=== PATIENT | female | born 1950 | race Two or more races ===

== ENCOUNTER 2017-05-05 18:42 | Emergency (ER) | payer MEDICARE, MEDICAID ==
[~2017-05-05] VITALS: Ht 160 cm; Wt 78.5 kg
[2017-05-05 19:36] LABS: Basophils # (auto) 0 uL; Basophils % (auto) 0.7 % (0.0-2.0); Eosinophils # (auto) 0.1 uL; Eosinophils % (auto) 1.7 % (0.0-7.0); Hematocrit 42.1 % (36.0-46.0); Hemoglobin 14.1 g/dL (12.2-16.2); Lymphocytes # (auto) 1.8 uL; Lymphocytes % (auto) 24.7 % (10.0-50.0); Mean Corpuscular Hemoglobin 30.4 pg (28.0-32.0); Mean Corpuscular Hgb Conc. 33.5 g/dL (32.0-36.0); Mean Corpuscular Volume 90.7 fL (80.0-100.0); Monocytes # (auto) 0.7 uL; Monocytes % (auto) 9.5 % (0.0-12.0); Neutrophils # (auto) 4.5 uL; Neutrophils % (auto) 63.4 % (37.0-80.0); Nucleated Red Blood Cells % 0.1 %; Platelet Count (auto) 323 10^3/uL (140-450); Red Blood Cells 4.64 10^6/uL (4.0-5.20); Red Cell Distribution Width 12.8 % (11.8-14.3); White Blood Cell 7.2 10^3/uL (4.4-10.8)
[2017-05-05 19:55] LABS: Albumin 4.1 g/dL (3.4-5.0); BUN/Creatinine Ratio 14.1; Bilirubin, Total 0.6 mg/dL (0.2-1.0); Total Protein 7.8 g/dL (6.4-8.2)
[2017-05-05 23:48] LABS: Urine Bacteria NONE SEEN /hpf (None Seen); Urine Blood Negative /uL (Negative); Urine Hyaline Cast MOD /lpf (0 - 2); Urine Mucus FEW (None Seen); Urine Specific Gravity 1.015 (1.001-1.035); Urine WBC 2 /hpf (0 - 5)
[2017-05-06 07:30] VITALS: BP 141/86
[2017-05-22] MEDS ORDERED: NAP500T PO (10:54)
[2017-05-22] MEDS ORDERED: ETOD400T PO (10:54)
[2017-05-22] MEDS ORDERED: MAGN100T6 OR (10:54)
[2017-05-22] MEDS ORDERED: GLUC1CAP12 PO (10:54)
[2017-05-22] MEDS ORDERED: CYAN100T7 PO (10:54)
[2017-05-22] MEDS ORDERED: OMEG1400 PO (10:54)
== END 2017-05-06 08:21 | disposition home or self-care (01) ==
LOC: ER 18:42
DX: E11.65 Type 2 diabetes mellitus with hyperglycemia (principal); M19.90 Unspecified osteoarthritis, unspecified site; E78.5 Hyperlipidemia, unspecified
CPT/HCPCS: 36415; 80053; 81001; 82962; 83036; 85025

== ENCOUNTER → 2017-05-27 | Outpatient (CLI) | payer MEDICARE, MEDICAID ==
[~2017-05-27] MED LIST: CYAN100T7 PO; ETOD400T PO; GLUC1CAP12 PO; MAGN100T6 OR; NAP500T PO; OMEG1400 PO
[2017-05-27 12:27] LABS: Basophils # (auto) 0 uL; Basophils % (auto) 0.6 % (0.0-2.0); Eosinophils # (auto) 0.1 uL; Eosinophils % (auto) 1.8 % (0.0-7.0); Hematocrit 45.4 % (36.0-46.0); Lymphocytes # (auto) 1.2 uL; Lymphocytes % (auto) 18.9 % (10.0-50.0); Mean Corpuscular Volume 90.7 fL (80.0-100.0); Monocytes # (auto) 0.5 uL; Monocytes % (auto) 7.3 % (0.0-12.0); Neutrophils # (auto) 4.4 uL; Neutrophils % (auto) 71.4 % (37.0-80.0); Nucleated Red Blood Cells % 0.1 %; Platelet Count (auto) 372 10^3/uL (140-450); Red Cell Distribution Width 13.2 % (11.8-14.3); Urine Blood TRACE /uL (Negative); Urine Specific Gravity 1.013 (1.001-1.035); White Blood Cell 6.2 10^3/uL (4.4-10.8)
[2017-05-27 12:49] LABS: Free T4 (Free Thyroxine) 1.57 ng/dL (0.89-1.76)
[2017-05-27 13:05] LABS: BUN/Creatinine Ratio 15.6; Bilirubin, Total 0.5 mg/dL (0.2-1.0); Calcium 8.7 mg/dL (8.5-10.1); Potassium 3.7 mmol/L (3.5-5.1)
== END | disposition home or self-care (01) ==
LOC: Rad HDHVI 08:50
PROVIDERS: ATTEND Internal Medicine Cardiovascular Disease
DX: I10 Essential (primary) hypertension (principal); E78.5 Hyperlipidemia, unspecified; D64.9 Anemia, unspecified; E11.9 Type 2 diabetes mellitus without complications; E03.9 Hypothyroidism, unspecified; D51.9 Vitamin B12 deficiency anemia, unspecified; N39.0 Urinary tract infection, site not specified; R51 Headache; R79.89 Other specified abnormal findings of blood chemistry; M19.90 Unspecified osteoarthritis, unspecified site; Z79.899 Other long term (current) drug therapy
CPT/HCPCS: 36415; 80053; 80061; 81003; 82306; 82607; 83036; 84439; 84443; 85025; 93306

== ENCOUNTER → 2017-06-18 | Outpatient (CLI) | payer MEDICARE, MEDICAID ==
[~2017-06-18] VITALS: Ht 160 cm; Wt 79.4 kg
[~2017-06-18] MED LIST changes: +ADENOSINE 67 MG in GIVE UN-DILUTED 0 ML IV ONE; +ADENOSINE 90 MG/30 ML INJ IV ONE
== END | disposition home or self-care (01) ==
LOC: Rad HDHVI 14:03
PROVIDERS: ATTEND Internal Medicine
DX: I10 Essential (primary) hypertension (principal); M19.90 Unspecified osteoarthritis, unspecified site; M25.569 Pain in unspecified knee; R51 Headache; R26.2 Difficulty in walking, not elsewhere classified; E11.9 Type 2 diabetes mellitus without complications; Z79.899 Other long term (current) drug therapy
CPT/HCPCS: 78452; 93005; 96374; 96375; A9500; J0153

== ENCOUNTER 2017-07-14 06:09 | Inpatient (IN) | payer MEDICARE, MEDICAID ==
[2017-07-11 10:53] LABS: Urine WBC None Seen /hpf (0 - 5)
[2017-07-11 10:59] LABS: Basophils # (auto) 0 uL; Basophils % (auto) 0.8 % (0.0-2.0); Eosinophils # (auto) 0.1 uL; Eosinophils % (auto) 1.3 % (0.0-7.0); Hematocrit 41.6 % (36.0-46.0); Hemoglobin 13.9 g/dL (12.2-16.2); Lymphocytes # (auto) 1.5 uL; Lymphocytes % (auto) 24.1 % (10.0-50.0); Mean Corpuscular Hemoglobin 29.8 pg (28.0-32.0); Mean Corpuscular Hgb Conc. 33.4 g/dL (32.0-36.0); Mean Corpuscular Volume 89.1 fL (80.0-100.0); Monocytes # (auto) 0.6 uL; Monocytes % (auto) 10.5 % (0.0-12.0); Neutrophils # (auto) 3.8 uL; Neutrophils % (auto) 63.3 % (37.0-80.0); Platelet Count (auto) 336 10^3/uL (140-450); Red Blood Cells 4.67 10^6/uL (4.0-5.20); Red Cell Distribution Width 13.5 % (11.8-14.3); White Blood Cell 6.1 10^3/uL (4.4-10.8)
[2017-07-11 11:18] LABS: Albumin 3.8 g/dL (3.4-5.0); BUN/Creatinine Ratio 20.8; Bilirubin, Total 0.3 mg/dL (0.2-1.0); Calcium 8.8 mg/dL (8.5-10.1); Potassium 3.7 mmol/L (3.5-5.1); Total Protein 7.5 g/dL (6.4-8.2)
[2017-07-11 11:30] LABS: Urine Bacteria FEW /hpf (None Seen); Urine Blood TRACE /uL (Negative); Urine Specific Gravity 1.011 (1.001-1.035)
[2017-07-11 11:35] LABS: INR 0.94 (0.9-1.15); Partial Thromboplastin Time 25.7 sec (22.64-33.71); Prothrombin Time 10.2 sec (9.37-12.3)
[~2017-07-14] VITALS: Ht 160 cm; Wt 43.3 kg
[~2017-07-14 06:09] MED LIST changes: -ADENOSINE 67 MG in GIVE UN-DILUTED 0 ML IV ONE; -ADENOSINE 90 MG/30 ML INJ IV ONE
[2017-07-14] MEDS ORDERED: ceFAZolin 1GM/100ML 100 ML IV ONE (06:37)
[2017-07-14] MEDS ORDERED: TETRACAINE 1% INJ 2 ML VIAL IJ ONE (06:49)
[2017-07-14] MEDS ORDERED: BACITRACIN INJ 50000 UNIT VIAL ONE (06:52)
[2017-07-14] MEDS ORDERED: fentaNYL CITRATE 100 MCG/2 ML VL ONE (07:04)
[2017-07-14] MEDS ORDERED: MIDAZOLAM HCL 1MG/1ML-2 ML VIAL ONE (07:04)
[2017-07-14] MEDS ORDERED: ONDANSETRON HCL 4 MG/2 ML VIAL ONE (07:04)
[2017-07-14] MEDS ORDERED: PROPOFOL 10 MG/ML 20 ML IV ONE (07:04)
[2017-07-14] MEDS ORDERED: MORPHINE SULF(PF) 0.5MG/ML 10ML VIAL ONE (07:04)
[2017-07-14] MEDS ORDERED: diphenhdrAMINE HCL 50 MG/1 ML VL IV PRN (09:00)
[2017-07-14] MEDS ORDERED: METOCLOPRAMIDE HCL 5MG/ml INJ 2ml VIAL IV ONE (09:00)
[2017-07-14] MEDS ORDERED: MORPHINE SULFATE 4 MG/ML SYR/VIAL IV PRN ×2 (09:00→09:45)
[2017-07-14] MEDS ORDERED: KETOROLAC TROMETH 30 MG/ML 1ML VIAL IV ONE (09:00)
[2017-07-14] MEDS ORDERED: LACTATED RINGER'S 1,000 ML IV SCH (09:34)
[2017-07-14] MEDS ORDERED: ONDANSETRON HCL 4 MG/2 ML VIAL IV PRN (09:45)
[2017-07-14] MEDS ORDERED: NITROGLYCERIN 0.4 MG SL TAB SL PRN (09:45)
[2017-07-14] MEDS ORDERED: ACETAMINOPHEN 325 MG TAB PO PRN (09:45)
[2017-07-14] MEDS: MORPHINE SULFATE 4 MG/ML SYR/VIAL IV PRN ×4 (10:47→11:28)
[2017-07-14] MEDS: ceFAZolin 1GM/100ML 50 ML IV SCH ×2 (12:14→18:07)
[2017-07-14 12:26] VITALS: BP 116/72
[2017-07-14] MEDS: OXYCODONE W/ ACETAMINOPHEN 5/325MG TABLET PO PRN ×2 (13:09→20:09)
[2017-07-14 13:23] VITALS: BP 116/72
[2017-07-14 16:34] VITALS: BP 103/59
[2017-07-14 22:00] VITALS: BP 122/64
[2017-07-14] MEDS: DOCUSATE SOD 100 MG CAP PO SCH (22:11)
[2017-07-15] MEDS: ceFAZolin 1GM/100ML 50 ML IV SCH (00:27)
[2017-07-15] MEDS: OXYCODONE W/ ACETAMINOPHEN 5/325MG TABLET PO PRN ×5 (00:27→22:11)
[2017-07-15 05:33] LABS: Basophils # (auto) 0 uL; Basophils % (auto) 0.2 % (0.0-2.0); Eosinophils # (auto) 0 uL; Eosinophils % (auto) 0.2 % (0.0-7.0); Hematocrit 32.7 % (36.0-46.0); Lymphocytes % (auto) 10.6 % (10.0-50.0); Mean Corpuscular Hgb Conc. 33.7 g/dL (32.0-36.0); Monocytes # (auto) 0.8 uL; Monocytes % (auto) 8.2 % (0.0-12.0); Neutrophils # (auto) 7.5 uL; Neutrophils % (auto) 80.8 % (37.0-80.0); Nucleated Red Blood Cells % 0.1 %; Platelet Count (auto) 274 10^3/uL (140-450); Red Blood Cells 3.68 10^6/uL (4.0-5.20); Red Cell Distribution Width 13.5 % (11.8-14.3); White Blood Cell 9.2 10^3/uL (4.4-10.8)
[2017-07-15 05:57] VITALS: BP 149/65
[2017-07-15 05:58] LABS: Albumin 3.2 g/dL (3.4-5.0); BUN/Creatinine Ratio 21.1; Bilirubin, Total 0.6 mg/dL (0.2-1.0); Calcium 8.4 mg/dL (8.5-10.1); Potassium 3.6 mmol/L (3.5-5.1); Total Protein 6.4 g/dL (6.4-8.2)
[2017-07-15 07:43] VITALS: BP 116/64
[2017-07-15] MEDS: HYDROmorphone HCL 2 MG/ML VL IV PRN ×2 (08:04→20:18)
[2017-07-15] MEDS: RIVAROXABAN 10 MG TAB PO SCH (09:46)
[2017-07-15] MEDS: DOCUSATE SOD 100 MG CAP PO SCH ×2 (09:46→22:09)
[2017-07-15] MEDS: MILK OF MAGNESIA 30ML SUSP PO SCH (09:46)
[2017-07-15 11:47] VITALS: BP 98/59
[2017-07-15] MEDS ORDERED: DEXTROSE (50%) 50ML SYRG IV PRN (13:15)
[2017-07-15 16:23] VITALS: BP 114/62
[2017-07-15] MEDS: ACCU-CHEK COMFORT CURVE STRIP VI SCH ×2 (17:40→22:11)
[2017-07-15] MEDS: InsuLIN REG 1unit/0.01ml Soln (100units/ml) SC SCH ×2 (18:02→22:11)
[2017-07-15 21:57] VITALS: BP 118/72
[2017-07-16 04:55] VITALS: BP 123/64
[2017-07-16 05:47] LABS: Basophils # (auto) 0 uL; Basophils % (auto) 0.2 % (0.0-2.0); Eosinophils # (auto) 0 uL; Eosinophils % (auto) 0.1 % (0.0-7.0); Hemoglobin 10.5 g/dL (12.2-16.2); Lymphocytes # (auto) 1.1 uL; Lymphocytes % (auto) 10.3 % (10.0-50.0); Mean Corpuscular Hemoglobin 30.3 pg (28.0-32.0); Mean Corpuscular Hgb Conc. 33.9 g/dL (32.0-36.0); Mean Corpuscular Volume 89.5 fL (80.0-100.0); Monocytes % (auto) 9.8 % (0.0-12.0); Neutrophils # (auto) 8.2 uL; Neutrophils % (auto) 79.6 % (37.0-80.0); Nucleated Red Blood Cells % 0.1 %; Platelet Count (auto) 251 10^3/uL (140-450); Red Blood Cells 3.47 10^6/uL (4.0-5.20); Red Cell Distribution Width 13.8 % (11.8-14.3); White Blood Cell 10.4 10^3/uL (4.4-10.8)
[2017-07-16 06:08] LABS: Albumin 2.9 g/dL (3.4-5.0); Bilirubin, Total 0.5 mg/dL (0.2-1.0); Calcium 8.4 mg/dL (8.5-10.1); Potassium 3.6 mmol/L (3.5-5.1); Total Protein 6.7 g/dL (6.4-8.2)
[2017-07-16] MEDS: OXYCODONE W/ ACETAMINOPHEN 5/325MG TABLET PO PRN ×3 (06:35→18:17)
[2017-07-16] MEDS: ACCU-CHEK COMFORT CURVE STRIP VI SCH ×4 (06:35→22:15)
[2017-07-16] MEDS: InsuLIN REG 1unit/0.01ml Soln (100units/ml) SC SCH ×4 (06:35→22:15)
[2017-07-16 07:45] VITALS: BP 120/61
[2017-07-16 08:00] VITALS: BP 120/61
[2017-07-16] MEDS: DOCUSATE SOD 100 MG CAP PO SCH ×2 (09:15→22:15)
[2017-07-16] MEDS: MILK OF MAGNESIA 30ML SUSP PO SCH (09:15)
[2017-07-16] MEDS: RIVAROXABAN 10 MG TAB PO SCH (09:15)
[2017-07-16] MEDS ORDERED: METHOCARBAMOL 500 MG TAB PO PRN (11:00)
[2017-07-16] MEDS ORDERED: KETOROLAC TROMETH 30 MG/ML 1ML VIAL IV ONE (11:00)
[2017-07-16 11:55] VITALS: BP 105/59
[2017-07-16 16:24] VITALS: BP 95/48
[2017-07-16 21:38] VITALS: BP 118/57
[2017-07-17] MEDS: OXYCODONE W/ ACETAMINOPHEN 5/325MG TABLET PO PRN ×3 (00:53→14:52)
[2017-07-17 05:13] VITALS: BP 120/67
[2017-07-17 06:00] LABS: Hematocrit 28.4 % (36.0-46.0); Hemoglobin 9.6 g/dL (12.2-16.2)
[2017-07-17] MEDS: InsuLIN REG 1unit/0.01ml Soln (100units/ml) SC SCH ×2 (06:43→11:41)
[2017-07-17] MEDS: ACCU-CHEK COMFORT CURVE STRIP VI SCH ×2 (06:43→11:41)
[2017-07-17 08:00] VITALS: BP_SYST 102; BP_SYST 112; BP_DIAS 62
[2017-07-17] MEDS: DOCUSATE SOD 100 MG CAP PO SCH (09:29)
[2017-07-17] MEDS: MILK OF MAGNESIA 30ML SUSP PO SCH (09:29)
[2017-07-17] MEDS: RIVAROXABAN 10 MG TAB PO SCH (09:30)
[2017-07-17] MEDS ORDERED: NAPROXEN 500 MG TAB PO SCH (10:00)
[2017-07-17] MEDS ORDERED: GLUCOSAMINE CHONDROITIN VIT C PO SCH (10:00)
[2017-07-17 11:14] VITALS: BP 102/62
[2017-07-17 12:00] VITALS: BP 112/62
== END 2017-07-17 15:17 | DRG 470 ==
LOC: SUR 06:09 → CENTRAL 06:10
PROVIDERS: ADMIT Orthopaedic Surgery; ATTEND Internal Medicine
PROC: 0SRC0J9 Replacement of Right Knee Joint with Synthetic Substitute, Cemented, Open Approach (ICD-10-PCS; principal; 2017-07-14 07:37)
DX: M17.11 Unilateral primary osteoarthritis, right knee (principal); D64.9 Anemia, unspecified; E66.9 Obesity, unspecified; E11.9 Type 2 diabetes mellitus without complications; I10 Essential (primary) hypertension; Z68.1 Body mass index [BMI] 19.9 or less, adult; K59.09 Other constipation; M94.261 Chondromalacia, right knee; M24.561 Contracture, right knee
CPT/HCPCS: 36415; 73562; 80053; 81001; 82962; 83036; 85014; 85018; 85025; 85610; 85730; 86850; 86900; 86901; 97110; 97116; 97530; J0690; J1815; J1885; J2250; J2405; J2704

== ENCOUNTER 2017-07-31 13:51 | Inpatient (IN) | payer MEDICARE, MEDICAID ==
[~2017-07-31] VITALS: Ht 154.9 cm; Wt 71.2 kg
[2017-07-31 16:00] LABS: Basophils # (auto) 0.1 uL; Eosinophils # (auto) 0.1 uL; Eosinophils % (auto) 1.1 % (0.0-7.0); Monocytes # (auto) 0.6 uL; White Blood Cell 8.8 10^3/uL (4.4-10.8)
[2017-07-31 16:02] LABS: Basophils % (auto) 0.7 % (0.0-2.0); Hematocrit 37.4 % (36.0-46.0); Hemoglobin 12.5 g/dL (12.2-16.2); Lymphocytes # (auto) 1.4 uL; Lymphocytes % (auto) 16.3 % (10.0-50.0); Mean Corpuscular Hgb Conc. 33.5 g/dL (32.0-36.0); Mean Corpuscular Volume 89.7 fL (80.0-100.0); Monocytes % (auto) 7.3 % (0.0-12.0); Neutrophils # (auto) 6.6 uL; Neutrophils % (auto) 74.6 % (37.0-80.0); Nucleated Red Blood Cells % 0.1 %; Platelet Count (auto) 551 10^3/uL (140-450); Red Blood Cells 4.17 10^6/uL (4.0-5.20); Red Cell Distribution Width 14.1 % (11.8-14.3)
[2017-07-31 16:18] LABS: Alanine Aminotransferase 23 U/L (13-56); Albumin 3.7 g/dL (3.4-5.0); Anion Gap 14 (5-15); Aspartate Aminotransferase 14 U/L (15-37); Blood Urea Nitrogen 15 mg/dL (7-18); Calcium 9.2 mg/dL (8.5-10.1); Carbon Dioxide 21 mmol/L (21-32); Chloride 107 mmol/L (98-107); GFR African American 83 mL/min; GFR Non-African American 69 mL/min; Glucose 143 mg/dL (74-106); Sodium 142 mmol/L (136-145)
[2017-07-31 16:21] LABS: Lactic Acid w/Reflex 3.2 mmol/L (0.4-2.0)
[2017-07-31 16:23] LABS: Alkaline Phosphatase 130 U/L (45-117); Bilirubin, Total 0.4 mg/dL (0.2-1.0); Total Protein 7.8 g/dL (6.4-8.2)
[2017-07-31] MEDS ORDERED: SODIUM CHLORIDE 0.9% 1,000 ML IV ONE ×3 (17:37→20:15)
[2017-07-31] MEDS ORDERED: ACETAMINOPHEN 325 MG TAB PO PRN (20:45)
[2017-07-31] MEDS ORDERED: TEMAZEPAM 15 MG CAP PO PRN (20:45)
[2017-07-31] MEDS ORDERED: ONDANSETRON HCL 4 MG/2 ML VIAL IV PRN (20:45)
[2017-07-31] MEDS ORDERED: MORPHINE SULFATE 10 MG/ML INJ 1ML SDV IV PRN (20:45)
[2017-07-31] MEDS ORDERED: DEXTROSE (50%) 50ML SYRG IV PRN (20:45)
[2017-07-31] MEDS ORDERED: RIVAROXABAN 10 MG TAB PO ONE (21:15)
[2017-07-31] MEDS: FAMOTIDINE 20 MG TAB PO SCH (22:11)
[2017-07-31 22:30] VITALS: BP 127/67
[2017-07-31 22:43] LABS: Urine Bacteria NONE SEEN /hpf (None Seen); Urine Blood Negative /uL (Negative); Urine Specific Gravity 1.016 (1.001-1.035); Urine WBC 1 /hpf (0 - 5)
[2017-07-31 23:08] LABS: INR 0.97 (0.9-1.15); Prothrombin Time 10.4 sec (9.27-12.13)
[2017-07-31] MEDS: InsuLIN REG 1unit/0.01ml Soln (100units/ml) SC SCH (23:47)
[2017-07-31] MEDS: ACCU-CHEK COMFORT CURVE STRIP VI SCH (23:47)
[2017-08-01] MEDS: HYDROcodone-ACET 5/325MG TAB PO PRN ×2 (01:57→08:18)
[2017-08-01 05:00] VITALS: BP 103/62
[2017-08-01] MEDS: InsuLIN REG 1unit/0.01ml Soln (100units/ml) SC SCH ×4 (06:00→23:50)
[2017-08-01] MEDS: ACCU-CHEK COMFORT CURVE STRIP VI SCH ×4 (06:03→23:49)
[2017-08-01 07:06] LABS: Basophils # (auto) 0.1 uL; Basophils % (auto) 0.8 % (0.0-2.0); Eosinophils # (auto) 0.1 uL; Eosinophils % (auto) 1.7 % (0.0-7.0); Hematocrit 33.5 % (36.0-46.0); Hemoglobin 10.9 g/dL (12.2-16.2); Lymphocytes # (auto) 1.6 uL; Lymphocytes % (auto) 23.7 % (10.0-50.0); Mean Corpuscular Hemoglobin 29.3 pg (28.0-32.0); Mean Corpuscular Hgb Conc. 32.6 g/dL (32.0-36.0); Mean Corpuscular Volume 89.9 fL (80.0-100.0); Monocytes # (auto) 0.6 uL; Monocytes % (auto) 8.7 % (0.0-12.0); Neutrophils # (auto) 4.5 uL; Neutrophils % (auto) 65.1 % (37.0-80.0); Nucleated Red Blood Cells % 0.1 %; Platelet Count (auto) 448 10^3/uL (140-450); Red Blood Cells 3.73 10^6/uL (4.0-5.20); Red Cell Distribution Width 14.2 % (11.8-14.3); White Blood Cell 6.8 10^3/uL (4.4-10.8)
[2017-08-01 07:24] LABS: Albumin 2.8 g/dL (3.4-5.0); BUN/Creatinine Ratio 25.6; Calcium 8.2 mg/dL (8.5-10.1); Potassium 3.5 mmol/L (3.5-5.1)
[2017-08-01 07:36] LABS: Bilirubin, Total 0.3 mg/dL (0.2-1.0); Total Protein 6.2 g/dL (6.4-8.2)
[2017-08-01 08:30] VITALS: BP 114/58
[2017-08-01 09:00] VITALS: BP 114/58
[2017-08-01] MEDS: FAMOTIDINE 20 MG TAB PO SCH ×2 (09:06→21:26)
[2017-08-01] MEDS: RIVAROXABAN 10 MG TAB PO SCH (09:06)
[2017-08-01] MEDS ORDERED: ENOXAPARIN SOD 40 MG/0.4 ML SYRINGE SC SCH (10:00)
[2017-08-01 13:00] VITALS: BP 126/61
[2017-08-01] MEDS: cefTRIAXone 1GM/10ml IVPUSH 10 ML IV SCH (13:43)
[2017-08-01] MEDS: DOXYCYCLINE 100 MG TAB/CAP PO SCH ×2 (13:44→21:26)
[2017-08-01] MEDS: CYANOCOBALAMIN 500 MCG TAB PO SCH (13:44)
[2017-08-01 17:00] VITALS: BP 124/70
[2017-08-01 21:56] VITALS: BP 116/68
[2017-08-01] MEDS: ATORVASTATIN 20 MG TAB PO SCH (23:51)
[2017-08-02 04:32] VITALS: BP 119/71
[2017-08-02] MEDS: InsuLIN REG 1unit/0.01ml Soln (100units/ml) SC SCH ×4 (05:49→23:01)
[2017-08-02] MEDS: ACCU-CHEK COMFORT CURVE STRIP VI SCH ×4 (05:49→22:59)
[2017-08-02 08:09] VITALS: BP 115/65
[2017-08-02 08:19] VITALS: BP 115/65
[2017-08-02] MEDS: FAMOTIDINE 20 MG TAB PO SCH ×2 (09:17→22:41)
[2017-08-02] MEDS: CYANOCOBALAMIN 500 MCG TAB PO SCH (09:17)
[2017-08-02] MEDS: DOXYCYCLINE 100 MG TAB/CAP PO SCH ×2 (09:17→22:41)
[2017-08-02] MEDS: cefTRIAXone 1GM/10ml IVPUSH 10 ML IV SCH (09:17)
[2017-08-02] MEDS: RIVAROXABAN 10 MG TAB PO SCH (09:19)
[2017-08-02] MEDS: HYDROcodone-ACET 5/325MG TAB PO PRN ×4 (09:28→22:58)
[2017-08-02 11:49] VITALS: BP 120/64
[2017-08-02 16:56] VITALS: BP 102/54
[2017-08-02 22:00] VITALS: BP 106/60
[2017-08-02] MEDS: ATORVASTATIN 20 MG TAB PO SCH (22:41)
[2017-08-03 05:00] VITALS: BP 122/75
[2017-08-03] MEDS: InsuLIN REG 1unit/0.01ml Soln (100units/ml) SC SCH ×3 (06:24→17:20)
[2017-08-03] MEDS: ACCU-CHEK COMFORT CURVE STRIP VI SCH ×3 (06:25→17:03)
[2017-08-03] MEDS: HYDROcodone-ACET 5/325MG TAB PO PRN ×4 (06:53→22:26)
[2017-08-03 08:00] VITALS: BP 110/54
[2017-08-03 08:30] VITALS: BP 110/54
[2017-08-03] MEDS: cefTRIAXone 1GM/10ml IVPUSH 10 ML IV SCH (09:22)
[2017-08-03] MEDS: CYANOCOBALAMIN 500 MCG TAB PO SCH (09:22)
[2017-08-03] MEDS: FAMOTIDINE 20 MG TAB PO SCH ×2 (09:23→22:26)
[2017-08-03] MEDS: DOXYCYCLINE 100 MG TAB/CAP PO SCH (09:23)
[2017-08-03] MEDS: RIVAROXABAN 10 MG TAB PO SCH (09:23)
[2017-08-03 12:00] VITALS: BP 147/83
[2017-08-03] MEDS: AMPICILLIN INJ 1 GM in SODIUM CHL 0.9% 50 ML IV SCH ×2 (12:34→17:19)
[2017-08-03 15:00] VITALS: BP 111/60
[2017-08-03 22:00] VITALS: BP 110/60
[2017-08-03] MEDS: ATORVASTATIN 20 MG TAB PO SCH (22:26)
[2017-08-04] MEDS: AMPICILLIN INJ 1 GM in SODIUM CHL 0.9% 50 ML IV SCH ×3 (00:24→13:29)
[2017-08-04] MEDS: InsuLIN REG 1unit/0.01ml Soln (100units/ml) SC SCH ×5 (01:50→23:41)
[2017-08-04 05:00] VITALS: BP 111/65
[2017-08-04] MEDS: HYDROcodone-ACET 5/325MG TAB PO PRN ×3 (05:09→22:40)
[2017-08-04] MEDS: ACCU-CHEK COMFORT CURVE STRIP VI SCH ×5 (06:00→23:41)
[2017-08-04 08:55] VITALS: BP 118/91
[2017-08-04] MEDS: CYANOCOBALAMIN 500 MCG TAB PO SCH (09:43)
[2017-08-04] MEDS: FAMOTIDINE 20 MG TAB PO SCH ×2 (09:43→21:34)
[2017-08-04] MEDS: ENOXAPARIN SOD 40 MG/0.4 ML SYRINGE SC SCH (09:44)
[2017-08-04 09:48] LABS: Basophils # (auto) 0.1 uL; Basophils % (auto) 0.4 % (0.0-2.0); Eosinophils # (auto) 0 uL; Eosinophils % (auto) 0.4 % (0.0-7.0); Hematocrit 37.5 % (36.0-46.0); Hemoglobin 12.2 g/dL (12.2-16.2); Lymphocytes # (auto) 1.5 uL; Lymphocytes % (auto) 13.6 % (10.0-50.0); Mean Corpuscular Hemoglobin 28.9 pg (28.0-32.0); Mean Corpuscular Hgb Conc. 32.4 g/dL (32.0-36.0); Mean Corpuscular Volume 89.3 fL (80.0-100.0); Neutrophils # (auto) 8.7 uL; Neutrophils % (auto) 76.6 % (37.0-80.0); Platelet Count (auto) 377 10^3/uL (140-450); White Blood Cell 11.3 10^3/uL (4.4-10.8)
[2017-08-04] MEDS: cefTRIAXone 1GM/10ml IVPUSH 10 ML IV SCH (09:57)
[2017-08-04 10:11] LABS: BUN/Creatinine Ratio 17.6; Calcium 8.6 mg/dL (8.5-10.1); Potassium 3.7 mmol/L (3.5-5.1)
[2017-08-04] MEDS ORDERED: LORazepam 2MG/ML-1ML VIAL IV ONE (12:15)
[2017-08-04] MEDS ORDERED: MORPHINE SULFATE 8mg/ml INJ SDV IV PRN (12:15)
[2017-08-04] MEDS: HYDROmorphone HCL 2 MG/ML VL IV PRN ×2 (12:41→17:32)
[2017-08-04 13:00] VITALS: BP 128/69
[2017-08-04 17:00] VITALS: BP 126/53
[2017-08-04 20:00] VITALS: BP 109/64
[2017-08-04] MEDS: LINEZOLID 600MG/300ML 300 ML IV SCH (21:34)
[2017-08-04] MEDS: ATORVASTATIN 20 MG TAB PO SCH (21:34)
[2017-08-04 22:00] VITALS: BP 109/64
[2017-08-05] MEDS: HYDROcodone-ACET 5/325MG TAB PO PRN ×4 (02:38→15:36)
[2017-08-05 05:42] VITALS: BP 113/58
[2017-08-05] MEDS: ACCU-CHEK COMFORT CURVE STRIP VI SCH ×2 (06:05→11:31)
[2017-08-05] MEDS: InsuLIN REG 1unit/0.01ml Soln (100units/ml) SC SCH ×2 (06:05→11:46)
[2017-08-05 08:53] VITALS: BP 135/72
[2017-08-05] MEDS: cefTRIAXone 1GM/10ml IVPUSH 10 ML IV SCH (09:01)
[2017-08-05] MEDS: CYANOCOBALAMIN 500 MCG TAB PO SCH (10:00)
[2017-08-05] MEDS: FAMOTIDINE 20 MG TAB PO SCH (10:04)
[2017-08-05] MEDS: LINEZOLID 600MG/300ML 300 ML IV SCH (10:04)
[2017-08-05] MEDS: ENOXAPARIN SOD 40 MG/0.4 ML SYRINGE SC SCH (10:04)
[2017-08-05 13:00] VITALS: BP 132/68
== END 2017-08-05 16:25 | DRG 919 ==
LOC: EDBD 13:51 → ER 13:51 → OVERFLOW 13:52 → WEST WING 22:27
PROVIDERS: ADMIT Nurse Practitioner; ATTEND Internal Medicine
DX: T81.31XA Disruption of external operation (surgical) wound, not elsewhere classified, initial encounter (principal); G93.41 Metabolic encephalopathy; E87.2 Acidosis; E11.9 Type 2 diabetes mellitus without complications; E78.5 Hyperlipidemia, unspecified; B95.2 Enterococcus as the cause of diseases classified elsewhere; M25.561 Pain in right knee; I10 Essential (primary) hypertension; Z16.21 Resistance to vancomycin; M19.90 Unspecified osteoarthritis, unspecified site; Z96.651 Presence of right artificial knee joint; G31.84 Mild cognitive impairment of uncertain or unknown etiology; Y83.8 Other surgical procedures as the cause of abnormal reaction of the patient, or of later complication, without mention of misadventure at the time of the procedure; Z79.01 Long term (current) use of anticoagulants; Z79.899 Other long term (current) drug therapy; Y92.89 Other specified places as the place of occurrence of the external cause
CPT/HCPCS: 36415; 70450; 70551; 73562; 73700; 80048; 80053; 81001; 82962; 83605; 84484; 85025; 85379; 85610; 87040; 87077; 87081; 87186; 87205; 93886; 95819; 96360; 96361; 97163; 97530; J1815; J2405

== ENCOUNTER 2018-08-12 15:55 | Emergency (ER) | payer MEDICARE, MEDICAID ==
[~2018-08-12] VITALS: Ht 152.4 cm; Wt 68.0 kg
[~2018-08-12 15:55] MED LIST changes: +ACET-6 PO; -CYAN100T7 PO; -ETOD400T PO; -GLUC1CAP12 PO; +HYDR-4683 PO; +INSDRIP SC; -MAGN100T6 OR; -NAP500T PO; -OMEG1400 PO
[2018-08-12 17:41] LABS: Basophils # (auto) 0.1 uL; Basophils % (auto) 0.6 % (0.0-2.0); Eosinophils # (auto) 0.2 uL; Eosinophils % (auto) 2.3 % (0.0-7.0); Hematocrit 40.4 % (36.0-46.0); Hemoglobin 13.4 g/dL (12.2-16.2); Lymphocytes # (auto) 1.9 uL; Lymphocytes % (auto) 22.3 % (10.0-50.0); Mean Corpuscular Hemoglobin 29.7 pg (28.0-32.0); Mean Corpuscular Hgb Conc. 33.2 g/dL (32.0-36.0); Mean Corpuscular Volume 89.6 fL (80.0-100.0); Monocytes # (auto) 0.8 uL; Monocytes % (auto) 9.3 % (0.0-12.0); Neutrophils # (auto) 5.7 uL; Neutrophils % (auto) 65.5 % (37.0-80.0); Nucleated Red Blood Cells % 0.1 %; Platelet Count (auto) 333 10^3/uL (140-450); Red Blood Cells 4.51 10^6/uL (4.0-5.20); Red Cell Distribution Width 13.3 % (11.8-14.3); White Blood Cell 8.7 10^3/uL (4.4-10.8)
[2018-08-12 18:01] LABS: Albumin 3.5 g/dL (3.4-5.0); BUN/Creatinine Ratio 18.3; Calcium 8.4 mg/dL (8.5-10.1)
[2018-08-12 18:04] LABS: Bilirubin, Total 0.3 mg/dL (0.2-1.0); Total Protein 7.4 g/dL (6.4-8.2)
[2018-08-12 18:37] LABS: Urine Bacteria FEW /hpf (None Seen); Urine Blood 1+ /uL (Negative); Urine Specific Gravity 1.014 (1.001-1.035); Urine WBC 2 /hpf (0 - 5)
[2018-08-12] MEDS ORDERED: cefTRIAXone 1GM/50ML D5W 50 ML IV ONE (18:45)
[2018-08-12 19:46] VITALS: BP 125/72
== END 2018-08-12 20:46 | disposition home or self-care (01) ==
LOC: ER 16:01 → UNDOADMIN 22:01 → TELE 22:01
DX: N30.80 Other cystitis without hematuria (principal); I69.351 Hemiplegia and hemiparesis following cerebral infarction affecting right dominant side; F03.90 Unspecified dementia, unspecified severity, without behavioral disturbance, psychotic disturbance, mood disturbance, and anxiety; E11.9 Type 2 diabetes mellitus without complications; M19.90 Unspecified osteoarthritis, unspecified site; E78.5 Hyperlipidemia, unspecified; Z79.1 Long term (current) use of non-steroidal anti-inflammatories (NSAID); Z79.4 Long term (current) use of insulin; Z79.899 Other long term (current) drug therapy
CPT/HCPCS: 36415; 80053; 81001; 83605; 85025; 87040; 96365; 99283; J0696